=== PATIENT | male | born 1945 | race Two or more races ===

== ENCOUNTER 2023-04-04 17:30 | Inpatient (IN) | payer OTHER ==
[~2023-04-04] VITALS: Ht 180.3 cm; Wt 66.1 kg
[2023-04-04 18:29] LABS: Basophils # (auto) 0.1 10 ^3/uL (0-0.2); Basophils % (auto) 0.9 % (0.0-2.0); Eosinophils # (auto) 0.1 10 ^3/uL (0-0.8); Eosinophils % (auto) 1.5 % (0.0-7.0); Hemoglobin 9.3 g/dL (13.5-17.5); Lymphocytes # (auto) 2.3 10 ^3/uL (0.4-5.4); Lymphocytes % (auto) 35.2 % (10.0-50.0); Mean Corpuscular Hemoglobin 32.2 pg (28.0-32.0); Mean Corpuscular Hgb Conc. 33.2 g/dL (32.0-36.0); Mean Corpuscular Volume 96.8 fL (80.0-100.0); Monocytes # (auto) 0.5 10 ^3/uL (0-1.3); Monocytes % (auto) 6.9 % (0.0-12.0); Neutrophils # (auto) 3.7 10 ^3/uL (1.6-8.6); Neutrophils % (auto) 55.5 % (37.0-80.0); Red Cell Distribution Width 13.4 % (11.8-14.3); White Blood Cell 6.6 10^3/uL (4.4-10.8)
[2023-04-04 19:03] LABS: Albumin 2.5 g/dL (3.4-5.0); BUN/Creatinine Ratio 17.1 (10.0-20.0); Calcium 7.9 mg/dL (8.5-10.1)
[2023-04-04 19:06] LABS: Bilirubin, Total 0.2 mg/dL (0.2-1.0); Total Protein 5.4 g/dL (6.4-8.2)
[2023-04-05] MEDS ORDERED: LACTATED RINGER'S 1,000 ML IV ONE (00:45)
[2023-04-05] MEDS ORDERED: MORPHINE SULFATE INJ 2 MG/ml SYRG IV ONE (00:45)
[2023-04-05] MEDS ORDERED: ASPirin 325 MG TAB PO ONE (00:45)
[2023-04-05] MEDS ORDERED: ONDANSETRON HCL 4 MG/2 ML VIAL IV ONE ×2 (00:45→04:15)
[2023-04-05] MEDS ORDERED: D5W/SOD CHL 0.45% 1,000 ML IV ONE (00:45)
[2023-04-05] MEDS ORDERED: ALBUMIN 25% 100 ML IV ONE (01:00)
[2023-04-05] MEDS ORDERED: ONDANSETRON HCL 4 MG/2 ML VIAL IV PRN (02:30)
[2023-04-05] MEDS ORDERED: MORPHINE SULFATE INJ 2 MG/ml SYRG IV PRN (02:30)
[2023-04-05] MEDS ORDERED: NITROGLYCERIN 0.4 MG SL TAB SL PRN (02:30)
[2023-04-05 03:00] VITALS: PULSE 70; RESP 15; O2SAT 100
[2023-04-05 03:34] LABS: Albumin 2.6 g/dL (3.4-5.0); BUN/Creatinine Ratio 18.9 (10.0-20.0); Calcium 7.8 mg/dL (8.5-10.1); Potassium 3.7 mmol/L (3.5-5.1)
[2023-04-05 03:36] LABS: Bilirubin, Total 0.2 mg/dL (0.2-1.0); Total Protein 5.4 g/dL (6.4-8.2)
[2023-04-05] MEDS ORDERED: HYDROmorphone HCL 2 MG/ML VL/or syr IV ONE (04:15)
[2023-04-05 08:20] VITALS: RESP 18; O2SAT 98
[2023-04-05 09:27] LABS: Urine Bacteria NONE SEEN /hpf (None Seen); Urine Blood TRACE /uL (Negative); Urine Hyaline Cast FEW /lpf (0 - 2); Urine Specific Gravity 1.013 (1.001-1.035); Urine WBC <1 /hpf (0 - 3)
[2023-04-05] MEDS: ENOXAPARIN SOD 40 MG/0.4 ML SYRINGE SC SCH (10:00)
[2023-04-05] MEDS ORDERED: PANTOPRAZOLE 40 MG TAB PO SCH (10:00)
[2023-04-05] MEDS: ASPirin 81 mg TAB PO SCH (10:33)
[2023-04-05 17:22] LABS: Barbiturate Scree,Urine NEGATIVE (NEGATIVE); Benzodiazephine Screen, Urine NEGATIVE (NEGATIVE); Cannabinoid Screen, Urine NEGATIVE (NEGATIVE); Cocaine Screen, Urine NEGATIVE (NEGATIVE)
[2023-04-05 17:29] LABS: Alcohol, Urine < 3.0 mg/dL (0-10); Amphetamine Screen, Urine NEGATIVE (NEGATIVE); Opiate Scree,Urine POSITIVE (NEGATIVE); Phencyclidine Screen, Urine NEGATIVE (NEGATIVE)
[2023-04-05 17:35] LABS: Urine Bacteria NONE SEEN /hpf (None Seen); Urine Hyaline Cast FEW /lpf (0 - 2); Urine Mucus FEW (None Seen); Urine WBC 32 /hpf (0 - 3)
[2023-04-05 17:57] LABS: INR 1.06 (0.9-1.15); Partial Thromboplastin Time 30.1 SEC (24.5-34.5)
[2023-04-05 19:30] VITALS: PULSE 55; RESP 18; O2SAT 94
[2023-04-05] MEDS: ACETAMINOPHEN 325 MG TAB PO PRN (21:21)
[2023-04-05 22:00] VITALS: BP 133/85; PULSE 63; RESP 17; TEMP 97.7; O2SAT 98
[2023-04-05 22:12] VITALS: PULSE 63; RESP 17; O2SAT 98
[2023-04-05] MEDS: ATORVASTATIN 20 MG TAB PO SCH (22:22)
[2023-04-06 05:00] VITALS: BP 122/74; PULSE 64; RESP 14; TEMP 97.9; O2SAT 94
[2023-04-06 06:33] LABS: Basophils # (auto) 0.1 10 ^3/uL (0-0.2); Eosinophils # (auto) 0.1 10 ^3/uL (0-0.8); Eosinophils % (auto) 1.7 % (0.0-7.0); Hemoglobin 7.8 g/dL (13.5-17.5); Nucleated Red Blood Cells % 0.1 %; White Blood Cell 7.7 10^3/uL (4.4-10.8)
[2023-04-06 06:37] LABS: Lymphocytes # (auto) 2.6 10 ^3/uL (0.4-5.4); Lymphocytes % (auto) 33.4 % (10.0-50.0); Mean Corpuscular Hemoglobin 33.1 pg (28.0-32.0); Mean Corpuscular Volume 97.3 fL (80.0-100.0); Monocytes # (auto) 0.7 10 ^3/uL (0-1.3); Neutrophils # (auto) 4.3 10 ^3/uL (1.6-8.6); Neutrophils % (auto) 54.9 % (37.0-80.0); Red Blood Cells 2.36 10^6/uL (4.5-5.90); Red Cell Distribution Width 13.4 % (11.8-14.3)
[2023-04-06 06:59] LABS: Potassium 4.1 mmol/L (3.5-5.1)
[2023-04-06 07:10] LABS: Albumin 2.1 g/dL (3.4-5.0); BUN/Creatinine Ratio 20.7 (10.0-20.0); Bilirubin, Total 1.1 mg/dL (0.2-1.0); Calcium 7.9 mg/dL (8.5-10.1); Total Protein 4.6 g/dL (6.4-8.2)
[2023-04-06 08:00] VITALS: BP 155/94; PULSE 51; PULSE 62; RESP 16; TEMP 97.6
[2023-04-06 09:00] VITALS: BP 116/55; PULSE 70; RESP 18; TEMP 97.6; O2SAT 99
[2023-04-06] MEDS: ASPirin 81 mg TAB PO SCH (10:00)
[2023-04-06] MEDS: ENOXAPARIN SOD 40 MG/0.4 ML SYRINGE SC SCH (10:00)
[2023-04-06 17:00] VITALS: BP 141/94; PULSE 60; RESP 19; TEMP 98.7; O2SAT 100
[2023-04-06 20:00] VITALS: PULSE 69; PULSE 73; RESP 19
[2023-04-06] MEDS: ATORVASTATIN 20 MG TAB PO SCH (21:23)
[2023-04-06 22:00] VITALS: BP 134/86; PULSE 56; RESP 18; TEMP 98.2; O2SAT 98
[2023-04-07] VITALS (7 sets, daily range): BP systolic 113–147; BP diastolic 64–92; PULSE 51–89; RESP 17–22; TEMP 98–98.5; O2SAT 96–99
[2023-04-07 05:59] LABS: Hemoglobin 8.2 g/dL (13.5-17.5); Monocytes # (auto) 0.7 10 ^3/uL (0-1.3); Neutrophils # (auto) 3.2 10 ^3/uL (1.6-8.6); Red Blood Cells 2.51 10^6/uL (4.5-5.90); White Blood Cell 7.1 10^3/uL (4.4-10.8)
[2023-04-07 06:03] LABS: Basophils # (auto) 0 10 ^3/uL (0-0.2); Basophils % (auto) 0.7 % (0.0-2.0); Eosinophils # (auto) 0.1 10 ^3/uL (0-0.8); Hematocrit 24.6 % (41.0-53.0); Lymphocytes # (auto) 3.1 10 ^3/uL (0.4-5.4); Lymphocytes % (auto) 42.9 % (10.0-50.0); Mean Corpuscular Hemoglobin 32.5 pg (28.0-32.0); Mean Corpuscular Hgb Conc. 33.3 g/dL (32.0-36.0); Mean Corpuscular Volume 97.8 fL (80.0-100.0); Monocytes % (auto) 9.3 % (0.0-12.0); Neutrophils % (auto) 45.1 % (37.0-80.0); Nucleated Red Blood Cells % 0.1 %
[2023-04-07 06:08] LABS: Potassium 4.1 mmol/L (3.5-5.1)
[2023-04-07 06:13] LABS: BUN/Creatinine Ratio 23.2 (10.0-20.0); Calcium 7.8 mg/dL (8.5-10.1)
[2023-04-07] MEDS: LOSARTAN POTASSIUM 25 MG TAB PO SCH (09:47)
[2023-04-07] MEDS: ENOXAPARIN SOD 40 MG/0.4 ML SYRINGE SC SCH (09:47)
[2023-04-07] MEDS: ASPirin 81 mg TAB PO SCH (09:47)
[2023-04-07] MEDS ORDERED: ADENOSINE 53 MG in GIVE UN-DILUTED 0 ML IV ONE (10:45)
[2023-04-07] MEDS: ATORVASTATIN 20 MG TAB PO SCH (21:18)
[2023-04-07] MEDS: ACETAMINOPHEN 325 MG TAB PO PRN (23:02)
[2023-04-08] VITALS (7 sets, daily range): BP systolic 128–151; BP diastolic 78–86; PULSE 53–81; RESP 17–20; TEMP 97.5–98.7; O2SAT 99–100
[2023-04-08 05:23] LABS: Basophils # (auto) 0.1 10 ^3/uL (0-0.2); Basophils % (auto) 0.9 % (0.0-2.0); Eosinophils # (auto) 0.2 10 ^3/uL (0-0.8); Eosinophils % (auto) 2.8 % (0.0-7.0); Hematocrit 24.2 % (41.0-53.0); Mean Corpuscular Hemoglobin 32.8 pg (28.0-32.0)
[2023-04-08 05:25] LABS: Lymphocytes % (auto) 46.8 % (10.0-50.0); Mean Corpuscular Hgb Conc. 32.9 g/dL (32.0-36.0); Mean Corpuscular Volume 99.7 fL (80.0-100.0); Monocytes # (auto) 0.6 10 ^3/uL (0-1.3); Neutrophils # (auto) 2.6 10 ^3/uL (1.6-8.6); Neutrophils % (auto) 40.5 % (37.0-80.0); Nucleated Red Blood Cells % 0.2 %; Red Blood Cells 2.43 10^6/uL (4.5-5.90); Red Cell Distribution Width 13.8 % (11.8-14.3); White Blood Cell 6.3 10^3/uL (4.4-10.8)
[2023-04-08 05:42] LABS: BUN/Creatinine Ratio 27.1 (10.0-20.0); Calcium 7.6 mg/dL (8.5-10.1); Potassium 4.1 mmol/L (3.5-5.1)
[2023-04-08] MEDS: ENOXAPARIN SOD 40 MG/0.4 ML SYRINGE SC SCH (10:19)
[2023-04-08] MEDS: ASPirin 81 mg TAB PO SCH (10:19)
[2023-04-08] MEDS: LOSARTAN POTASSIUM 25 MG TAB PO SCH (10:19)
[2023-04-08] MEDS ORDERED: CLOPIDOGREL BISULFATE 75 MG TAB PO ONE (15:00)
[2023-04-08] MEDS ORDERED: METF-370 PO (15:17)
[2023-04-08] MEDS ORDERED: HYDR-4902 PO (15:18)
[2023-04-08] MEDS ORDERED: FURO40TA4 PO (15:19)
[2023-04-08] MEDS ORDERED: AMLO1TAB22 PO (15:20)
[2023-04-08] MEDS ORDERED: ATOR20TA PO (15:20)
[2023-04-08] MEDS ORDERED: DOCU-94 PO (15:21)
[2023-04-08] MEDS ORDERED: FERR325T20 PO (15:22)
[2023-04-08] MEDS ORDERED: LORA-1123 PO (15:23)
[2023-04-08] MEDS: ATORVASTATIN 20 MG TAB PO SCH (21:56)
[2023-04-09] VITALS (7 sets, daily range): BP systolic 120–146; BP diastolic 69–80; PULSE 53–87; RESP 17–20; TEMP 97.7–98.7; O2SAT 95–100
[2023-04-09] MEDS: ENOXAPARIN SOD 40 MG/0.4 ML SYRINGE SC SCH (09:28)
[2023-04-09] MEDS: CLOPIDOGREL BISULFATE 75 MG TAB PO SCH (09:28)
[2023-04-09] MEDS: ASPirin 81 mg TAB PO SCH (09:28)
[2023-04-09] MEDS: LOSARTAN POTASSIUM 25 MG TAB PO SCH (09:31)
[2023-04-09] MEDS: ATORVASTATIN 20 MG TAB PO SCH (22:23)
[2023-04-09] MEDS: ACETAMINOPHEN 325 MG TAB PO PRN (22:23)
[2023-04-10] VITALS (7 sets, daily range): BP systolic 118–148; BP diastolic 73–80; PULSE 53–96; RESP 16–20; TEMP 97.9–98.8; O2SAT 95–100
[2023-04-10 08:54] LABS: Basophils # (auto) 0.1 10 ^3/uL (0-0.2); Eosinophils # (auto) 0.2 10 ^3/uL (0-0.8); Monocytes # (auto) 0.5 10 ^3/uL (0-1.3); White Blood Cell 5.3 10^3/uL (4.4-10.8)
[2023-04-10 08:55] LABS: Eosinophils % (auto) 3.8 % (0.0-7.0); Hematocrit 23.7 % (41.0-53.0); Hemoglobin 7.9 g/dL (13.5-17.5); Lymphocytes # (auto) 2.3 10 ^3/uL (0.4-5.4); Lymphocytes % (auto) 43.5 % (10.0-50.0); Mean Corpuscular Hemoglobin 32.9 pg (28.0-32.0); Mean Corpuscular Hgb Conc. 33.5 g/dL (32.0-36.0); Mean Corpuscular Volume 98.2 fL (80.0-100.0); Monocytes % (auto) 10.3 % (0.0-12.0); Neutrophils # (auto) 2.2 10 ^3/uL (1.6-8.6); Neutrophils % (auto) 41.4 % (37.0-80.0); Nucleated Red Blood Cells % 0.1 %; Red Blood Cells 2.41 10^6/uL (4.5-5.90); Red Cell Distribution Width 13.8 % (11.8-14.3)
[2023-04-10] MEDS: ASPirin 81 mg TAB PO SCH (09:09)
[2023-04-10] MEDS: LOSARTAN POTASSIUM 25 MG TAB PO SCH (09:09)
[2023-04-10] MEDS: ENOXAPARIN SOD 40 MG/0.4 ML SYRINGE SC SCH (09:10)
[2023-04-10] MEDS: CLOPIDOGREL BISULFATE 75 MG TAB PO SCH (09:10)
[2023-04-10 09:15] LABS: BUN/Creatinine Ratio 24.8 (10.0-20.0); Calcium 7.4 mg/dL (8.5-10.1); Potassium 4.5 mmol/L (3.5-5.1)
[2023-04-10 09:50] LABS: Folate (Folic Acid) 13.87 ng/mL (5.38-24)
[2023-04-10] MEDS ORDERED: ANGIOMAX 250 MG VIAL IV ONE (12:12)
[2023-04-10] MEDS ORDERED: LIDOCAINE 2%HCL (LOCAL ANESTH.) INJ 20ML MDV ONE (12:12)
[2023-04-10] MEDS ORDERED: HEPARIN SODIUM (PORCINE) 5000 UNITS/ML 1ML VIAL ONE (12:12)
[2023-04-10] MEDS ORDERED: fentaNYL CITRATE 100 MCG/2 ML VL ONE (12:12)
[2023-04-10] MEDS ORDERED: MIDAZOLAM HCL 2MG/2ML 2ml VIAL (1mg/ml) ONE (12:12)
[2023-04-10] MEDS ORDERED: SODIUM CHL 0.9% 0 ML ONE (12:13)
[2023-04-10] MEDS ORDERED: HEPARIN IN NS 1000Units/500mL 0 ML ONE (12:13)
[2023-04-10] MEDS ORDERED: IODIXANOL 320MG/ML 100ML BTL IV ONE (12:13)
[2023-04-10] MEDS ORDERED: VERAPAMIL 2.5MG/ML INJ 2ML VIAL IV ONE (12:14)
[2023-04-10] MEDS: Ensure HIGH Protein Chocolate 8oz Bottle PO SCH (17:58)
[2023-04-10] MEDS: ATORVASTATIN 20 MG TAB PO SCH (21:14)
[2023-04-11] MEDS: ACETAMINOPHEN 325 MG TAB PO PRN ×2 (00:14→09:57)
[2023-04-11 05:00] VITALS: BP 126/76; PULSE 108; RESP 20; TEMP 97.9; O2SAT 95
[2023-04-11 06:12] LABS: Potassium 4.4 mmol/L (3.5-5.1)
[2023-04-11 06:16] LABS: BUN/Creatinine Ratio 23.9 (10.0-20.0); Calcium 7.4 mg/dL (8.5-10.1)
[2023-04-11 06:17] LABS: RPR Non Reactive (Non Reactive)
[2023-04-11 06:20] LABS: Eosinophils # (auto) 0.2 10 ^3/uL (0-0.8); Monocytes # (auto) 0.6 10 ^3/uL (0-1.3); Neutrophils # (auto) 2.4 10 ^3/uL (1.6-8.6)
[2023-04-11 06:23] LABS: Basophils # (auto) 0.1 10 ^3/uL (0-0.2); Basophils % (auto) 0.9 % (0.0-2.0); Eosinophils % (auto) 3.5 % (0.0-7.0); Hematocrit 23.9 % (41.0-53.0); Lymphocytes # (auto) 2.6 10 ^3/uL (0.4-5.4); Lymphocytes % (auto) 43.9 % (10.0-50.0); Mean Corpuscular Hemoglobin 32.9 pg (28.0-32.0); Mean Corpuscular Hgb Conc. 33.4 g/dL (32.0-36.0); Mean Corpuscular Volume 98.6 fL (80.0-100.0); Monocytes % (auto) 10.3 % (0.0-12.0); Neutrophils % (auto) 41.4 % (37.0-80.0); Nucleated Red Blood Cells % 0.1 %; Red Blood Cells 2.43 10^6/uL (4.5-5.90); Red Cell Distribution Width 13.8 % (11.8-14.3); White Blood Cell 5.9 10^3/uL (4.4-10.8)
[2023-04-11 06:27] VITALS: BP 138/70; PULSE 56; RESP 18; TEMP 97.9; O2SAT 97
[2023-04-11 08:00] VITALS: PULSE 56; PULSE 60; RESP 18; O2SAT 97
[2023-04-11] MEDS: Ensure HIGH Protein Chocolate 8oz Bottle PO SCH (08:00)
[2023-04-11] MEDS ORDERED: ASPI-325 PO (09:23)
[2023-04-11] MEDS ORDERED: CLOP75TA70 PO (09:23)
[2023-04-11] MEDS ORDERED: LOS25T PO (09:23)
[2023-04-11] MEDS: ASPirin 81 mg TAB PO SCH (09:55)
[2023-04-11] MEDS: CLOPIDOGREL BISULFATE 75 MG TAB PO SCH (09:55)
[2023-04-11] MEDS: ENOXAPARIN SOD 40 MG/0.4 ML SYRINGE SC SCH (09:56)
[2023-04-11] MEDS: LOSARTAN POTASSIUM 25 MG TAB PO SCH (09:56)
[2023-04-11] MEDS ORDERED: RANO500T3 PO (14:01)
[2023-04-11 15:42] VITALS: BP 138/70; PULSE 60; RESP 18; TEMP 97.6; O2SAT 97
== END 2023-04-11 16:20 | disposition hospice, home (50) | DRG 313 ==
LOC: ER 17:30 → TELE 04-05 02:26 → TELE-CENTR 04-05 22:00
PROVIDERS: ADMIT Internal Medicine Pulmonary Disease; ATTEND Student in an Organized Health Care Education/Training Program
DX: R07.89 Other chest pain (principal); E87.0 Hyperosmolality and hypernatremia; I50.32 Chronic diastolic (congestive) heart failure; I13.0 Hypertensive heart and chronic kidney disease with heart failure and stage 1 through stage 4 chronic kidney disease, or unspecified chronic kidney disease; N17.9 Acute kidney failure, unspecified; F02.811 Dementia in other diseases classified elsewhere, unspecified severity, with agitation; E83.51 Hypocalcemia; E11.22 Type 2 diabetes mellitus with diabetic chronic kidney disease; G30.9 Alzheimer's disease, unspecified; G93.89 Other specified disorders of brain; N18.9 Chronic kidney disease, unspecified; D64.9 Anemia, unspecified; R55 Syncope and collapse; I25.10 Atherosclerotic heart disease of native coronary artery without angina pectoris; I34.1 Nonrheumatic mitral (valve) prolapse; Z86.73 Personal history of transient ischemic attack (TIA), and cerebral infarction without residual deficits; Z98.61 Coronary angioplasty status
CPT/HCPCS: 36415; 70450; 70551; 71045; 72125; 72128; 72131; 76705; 78452; 80048; 80053; 80307; 81001; 81015; 82040; 82607; 82746; 83036; 83880; 84443; 84484; 85025; 85610; 85730; 86592; 93005; 93017; 93306; 97163; G0378; J0153; J2250; J2405; P9047; Q9967